=== PATIENT | female | born 1950 | race Caucasian/White ===

== ENCOUNTER 2018-02-10 05:21 | Day surgery (SDC) | payer OTHER ==
[~2018-02-10] VITALS: Ht 167.6 cm; Wt 81.6 kg
[~2018-02-10 05:21] MED LIST: HYDR-1189 PO; MELO15TA13 PO
[2018-02-10] MEDS ORDERED: CEFAZOLIN 2 GM IVPB PREMIX 50 ML IV ONE (06:15)
[2018-02-10] MEDS ORDERED: LEVO25TA7 PO (06:37)
[2018-02-10] MEDS ORDERED: SUCCINYLCHOLINE CHLORIDE 20 MG/ML(QUELICIN) IVP ONE (07:15)
[2018-02-10] MEDS ORDERED: ePHEDrine sulfate 50 MG/ML VIAL IVP ONE (07:15)
[2018-02-10] MEDS ORDERED: fentaNYL CITRATE 250 MCG/5 ML AMP IV ONE (07:15)
[2018-02-10] MEDS ORDERED: LR 1,000 ML IV.SOLN IV ONE (07:15)
[2018-02-10] MEDS ORDERED: PROPOFOL 200MG/ 20ML VIAL (DIPRIVAN) IV ONE (07:15)
[2018-02-10] MEDS ORDERED: fentaNYL CITRATE/PF 100 MCG/2 ML AMP IVP ONE (07:15)
[2018-02-10] MEDS ORDERED: MEPERIDINE HCL/PF 50 MG/ML AMP IVP ONE (07:15)
[2018-02-10] MEDS ORDERED: DEXAMETHASONE SOD PHOSPHATE 4 MG/ML VIAL IVP ONE (07:15)
[2018-02-10] MEDS ORDERED: ONDANSETRON HCL 4 MG/2 ML VIAL IVP ONE ×2 (07:15→10:30)
[2018-02-10] MEDS ORDERED: CEFAZOLIN SOD 2 GM in D5W 50 ML IV ONE (08:00)
[2018-02-10] MEDS ORDERED: MEPERIDINE HCL/PF 25 MG/ML DISP.SYRIN IVP PRN (10:30)
[2018-02-10] MEDS ORDERED: MIDAZOLAM HCL 5 MG/5 ML VIAL IVP PRN (10:30)
[2018-02-10] MEDS ORDERED: NALOXONE HCL 0.4 MG/ML AMP (NARCAN) IVP ONE (10:30)
[2018-02-10] MEDS ORDERED: LABETALOL 100 MG/ 20ML VIAL IVP PRN (10:30)
[2018-02-10] MEDS ORDERED: fentaNYL CITRATE/PF 100 MCG/2 ML AMP IVP PRN (10:30)
[2018-02-10] MEDS ORDERED: HYDROmorphone 1 MG INJ. 1 MG/ML AMPUL IVP PRN (10:30)
[2018-02-10] MEDS ORDERED: HYDROcodone/ACETAMIN 5-325 MG TAB (NORCO/ VICODIN) PO PRN (12:15)
[2018-02-10] MEDS ORDERED: ONDANSETRON 4 MG ODT TAB PO PRN (12:15)
[2018-02-10] MEDS ORDERED: ACETAMINOPHEN 325 MG TABLET PO PRN (12:15)
[2018-02-10] MEDS ORDERED: ONDANSETRON HCL 4 MG/2 ML VIAL IVP PRN ×2 (12:15)
[2018-02-10] MEDS ORDERED: ACETAMINOPHEN 650 MG/20.3 ML UDC PO PRN (12:15)
[2018-02-10] MEDS ORDERED: MORPHINE 2 MG/ML INJ. SYRINGE IVP PRN (12:15)
[2018-02-10] MEDS ORDERED: LABETALOL 100 MG/ 20ML VIAL IVP ONE ×2 (12:35→12:50)
[2018-02-10] MEDS ORDERED: LABETALOL 100 MG/ 20ML VIAL ONE (12:36)
[2018-02-10 13:36] VITALS: BP_SYST 144
[2018-02-10] MEDS: POTASSIUM CHLORIDE 20 MEQ in 0.45% NACL 1,000 ML IV SCH (15:13)
[2018-02-10] MEDS: CALCIUM CARBONATE 500 MG/ TAB.CHEW PO SCH ×2 (18:43→20:54)
[2018-02-10 20:00] VITALS: BP_SYST 124
[2018-02-10] MEDS: NORMAL SALINE 5 ML DISP.SYRIN IVF SCH (20:55)
[2018-02-10 21:20] LABS: ALBUMIN 2.8 g/dL (3.4-4.8)
[2018-02-11] MEDS: POTASSIUM CHLORIDE 20 MEQ in 0.45% NACL 1,000 ML IV SCH ×2 (00:18→09:22)
[2018-02-11 04:00] VITALS: BP_SYST 132
[2018-02-11] MEDS: NORMAL SALINE 5 ML DISP.SYRIN IVF SCH ×2 (06:10→13:01)
[2018-02-11] MEDS ORDERED: LEVOTHYROXINE SODIUM 0.125 MG TABLET PO SCH (07:00)
[2018-02-11 08:00] VITALS: BP_SYST 136
[2018-02-11] MEDS: CALCIUM CARBONATE 500 MG/ TAB.CHEW PO SCH ×2 (08:13→12:59)
[2018-02-11 12:40] VITALS: BP_SYST 134
[2018-02-11] MEDS ORDERED: LEVO125T8 PO (13:04)
[2018-02-11] MEDS ORDERED: CALC500T3 PO (13:05)
[2018-02-11] MEDS ORDERED: HYDR-1189 PO (13:07)
[2018-02-11 13:35] VITALS: BP_SYST 135
== END 2018-02-11 14:00 | disposition home or self-care (01) ==
LOC: SDS 05:21 → SMU 05:22 → SDS 02-11 14:00
PROVIDERS: ATTEND Otolaryngology
DX: C73 Malignant neoplasm of thyroid gland (principal); Z90.49 Acquired absence of other specified parts of digestive tract; Z98.890 Other specified postprocedural states; E03.9 Hypothyroidism, unspecified; M19.90 Unspecified osteoarthritis, unspecified site; Z79.899 Other long term (current) drug therapy; E66.3 Overweight
CPT/HCPCS: 36415; 60240; 82040; 82310; 83970; 87081 ×2; 88307; J0330; J0690; J1100; J2175; J2405; J2704; J3010 ×2; J3480; J3490; J7120; C1782

== ENCOUNTER 2023-09-26 11:57 | Emergency (ER) | payer OTHER ==
[~2023-09-26] VITALS: Ht 162.6 cm; Wt 77.1 kg
[~2023-09-26 11:57] MED LIST changes: +CALC500T3 PO; -HYDR-1189 PO; +HYDR-3919 PO; +LEVO125T8 PO; -MELO15TA13 PO
[2023-09-26 12:04] VITALS: BP_SYST 140; PULSE 91; RESP 18; TEMP 98.3; O2SAT 100
[2023-09-26 12:42] LABS: BASOPHILS % (AUTO) 0.3 % (0.0-2.0); EOSINOPHILS % (AUTO) 0.5 % (0.0-4.0); HEMATOCRIT 43.4 % (36-48); HEMOGLOBIN 14.4 g/dL (12.0-16.0); LYMPHOCYTES # (AUTO) 0.9 K/uL (1.0-5.5); LYMPHOCYTES % (AUTO) 13.9 % (20.5-51.5); MEAN CORPUSCULAR HEMOGLOBIN 31 pg (27-31); MEAN CORPUSCULAR HGB CONC 33 % (32-36); MEAN CORPUSCULAR VOLUME 93 fL (79.0-98.0); MONOCYTES # (AUTO) 0.5 K/uL (0.0-1.0); MONOCYTES % (AUTO) 7.5 % (1.7-9.3); NEUTROPHILS # (AUTO) 4.9 K/uL (1.8-7.7); NEUTROPHILS % (AUTO) 77.8 % (40.0-70.0); PLATELET COUNT (AUTO) 249 K/uL (130-430); RED CELL DISTRIBUTION WIDTH 13.7 % (9.0-15.0); WHITE BLOOD COUNT (AUTO) 6.2 K/uL (4.8-10.8)
[2023-09-26 13:01] LABS: ANION GAP 9 (5-15); CARBON DIOXIDE 27 mmol/L (23-29); CHLORIDE 102 mmol/L (98-107); CREATININE 0.64 mg/dL (0.55-1.30); GLUCOSE 99 mg/dL (74-106); POTASSIUM 3.9 mmol/L (3.5-5.1); SODIUM SERUM 138 mmol/L (136-145); UREA NITROGEN, BLOOD 10 mg/dL (8-21)
[2023-09-26 13:06] LABS: ALANINE AMINOTRANSFERASE 19 U/L (12-78); ALBUMIN 3.2 g/dL (3.4-4.8); ASPARTATE AMINOTRANSFERASE 19 U/L (10-37); TOTAL BILIRUBIN 0.3 mg/dL (0.0-1.0); TOTAL PROTEIN, SERUM 6.2 g/dL (6.4-8.3)
[2023-09-26] MEDS ORDERED: NABU-140 PO (13:46)
[2023-09-26 13:50] LABS: CLARITY/URINE CLEAR (CLEAR); COLOR,URINE YELLOW (YELLOW); PROTEIN URINE NEGATIVE (NEGATIVE)
[2023-09-26 13:51] LABS: BILIRUBIN,URINE NEGATIVE (NEGATIVE); BLOOD, URINE 2+ (NEGATIVE); GLUCOSE,URINE NEGATIVE (NEGATIVE); KETONES,URINE 2+ (NEGATIVE)
[2023-09-26 13:52] LABS: LEUKOCYTE ESTERASE ,URINE 1+ (NEGATIVE); NITRITE, URINE POSITIVE (NEGATIVE); UROBILINOGEN,URINE 0.2 (0.2-1.0)
[2023-09-26 13:58] VITALS: BP_SYST 137; PULSE 78; RESP 16; TEMP 98.1; O2SAT 97
[2023-09-26 14:09] LABS: BACTERIA,URINE MANY /HPF (None Seen)
== END 2023-09-26 13:57 | disposition home or self-care (01) ==
LOC: SED 11:57
DX: R10.31 Right lower quadrant pain (principal); R19.7 Diarrhea, unspecified; Z79.899 Other long term (current) drug therapy
CPT/HCPCS: 36415; 76376; 80053; 81000; 81001; 81015; 85025; 87086; 99284

== ENCOUNTER 2023-09-28 20:49 | Inpatient (IN) | payer OTHER ==
[~2023-09-28] VITALS: Ht 162.6 cm; Wt 75.3 kg
[~2023-09-28 20:49] MED LIST changes: +NABU-140 PO
[2023-09-28 21:00] VITALS: BP_SYST 124; PULSE 120; RESP 16; TEMP 97.9; O2SAT 99
[2023-09-28 21:43] LABS: BASOPHILS % (AUTO) 0.1 % (0.0-2.0); HEMATOCRIT 29.2 % (36-48); HEMOGLOBIN 9.6 g/dL (12.0-16.0); LYMPHOCYTES # (AUTO) 0.7 K/uL (1.0-5.5); LYMPHOCYTES % (AUTO) 3.7 % (20.5-51.5); MEAN CORPUSCULAR HEMOGLOBIN 31 pg (27-31); MEAN CORPUSCULAR HGB CONC 33 % (32-36); MEAN CORPUSCULAR VOLUME 93 fL (79.0-98.0); MONOCYTES % (AUTO) 5.2 % (1.7-9.3); NEUTROPHILS # (AUTO) 17.4 K/uL (1.8-7.7); PLATELET COUNT (AUTO) 357 K/uL (130-430); RED BLOOD CELL COUNT(AUTO) 3.15 MIL/uL (4.2-6.2); RED CELL DISTRIBUTION WIDTH 13.1 % (9.0-15.0); WHITE BLOOD COUNT (AUTO) 19.1 K/uL (4.8-10.8)
[2023-09-28 21:58] LABS: ANION GAP 12 (5-15); CALCIUM 8.7 mg/dL (8.4-11.0); CARBON DIOXIDE 22 mmol/L (23-29); CHLORIDE 104 mmol/L (98-107); CREATININE 0.91 mg/dL (0.55-1.30); GLUCOSE 175 mg/dL (74-106); POTASSIUM 4.6 mmol/L (3.5-5.1); SODIUM SERUM 138 mmol/L (136-145); UREA NITROGEN, BLOOD 58 mg/dL (8-21)
[2023-09-28 22:02] LABS: PROTHROMBIN TIME 10.7 SECS (9.5-12.5)
[2023-09-28 22:05] LABS: ALANINE AMINOTRANSFERASE 21 U/L (12-78); ALBUMIN 2.8 g/dL (3.4-4.8); ASPARTATE AMINOTRANSFERASE 18 U/L (10-37); TOTAL BILIRUBIN 0.4 mg/dL (0.0-1.0); TOTAL PROTEIN, SERUM 5.3 g/dL (6.4-8.3)
[2023-09-28] MEDS ORDERED: PANTOPRAZOLE SODIUM 80 MG in NS 100 ML IV ONE (22:30)
[2023-09-28] MEDS ORDERED: PANTOPRAZOLE SODIUM 40 MG in NS 50 ML IV ONE (22:30)
[2023-09-28] MEDS ORDERED: PIPERACILLIN/TAZO 3.375 GM in NS 50 ML IV ONE (22:45)
[2023-09-28] MEDS ORDERED: NS IV SCH (22:45)
[2023-09-28] MEDS ORDERED: PANTOPRAZOLE SODIUM IV SCH (22:45)
[2023-09-28] MEDS ORDERED: PANTOPRAZOLE SODIUM 40 MG/VIAL (PROTONIX) ONE (23:04)
[2023-09-28] MEDS ORDERED: PIPERACILLIN/TAZOBACTAM 3.375 GM/VIAL (ZOSYN) IV ONE (23:04)
[2023-09-29 00:30] VITALS: BP_SYST 103; PULSE 109; RESP 20; TEMP 97.5
[2023-09-29 00:53] VITALS: BP_SYST 103; PULSE 109; RESP 20; TEMP 97.5; O2SAT 100
[2023-09-29 01:00] VITALS: O2SAT 100
[2023-09-29] MEDS ORDERED: PANTOPRAZOLE SODIUM 40 MG/VIAL (PROTONIX) ONE (01:22)
[2023-09-29] MEDS: D5/0.45 NS 1,000 ML IV SCH ×3 (01:30→20:14)
[2023-09-29] MEDS ORDERED: NACL 0.9% 1,000 ML IV ONE (04:30)
[2023-09-29 05:25] LABS: HEMATOCRIT 26.3 % (36-48); HEMOGLOBIN 8.7 g/dL (12.0-16.0)
[2023-09-29] MEDS: PANTOPRAZOLE SODIUM 40 MG in NS 50 ML IV SCH ×4 (06:43→21:24)
[2023-09-29] MEDS ORDERED: fentaNYL CITRATE/PF 100 MCG/2 ML AMP ONE (09:29)
[2023-09-29] MEDS ORDERED: MIDAZOLAM HCL 5 MG/5 ML VIAL ONE (09:29)
[2023-09-29] MEDS ORDERED: BENZOCAINE 20% 0.5mL UD SPRAY MM ONE (09:31)
[2023-09-29] MEDS ORDERED: DIATR MEGLU/DIATRIZ SOD 30 ML SOLUTION PO ONE (09:36)
[2023-09-29] MEDS ORDERED: LEVO137T2 PO (10:05)
[2023-09-29 15:22] VITALS: BP_SYST 110; PULSE 108; RESP 16; TEMP 97.1; O2SAT 93
[2023-09-29 17:46] LABS: HEMOGLOBIN 7.3 g/dL (12.0-16.0)
[2023-09-29 17:48] LABS: HEMATOCRIT 21.6 % (36-48)
[2023-09-29] MEDS ORDERED: SUCRALFATE 1 GM TABLET PO ONE (18:45)
[2023-09-29 20:00] VITALS: BP_SYST 100; PULSE 110; RESP 18; TEMP 97.6; O2SAT 96
[2023-09-30 00:57] VITALS: BP_SYST 95; PULSE 107; RESP 17; TEMP 98.2; O2SAT 95
[2023-09-30] MEDS: PANTOPRAZOLE SODIUM 40 MG in NS 50 ML IV SCH ×5 (02:59→22:00)
[2023-09-30] MEDS: D5/0.45 NS 1,000 ML IV SCH ×2 (04:45→17:40)
[2023-09-30 05:40] LABS: BASOPHILS % (AUTO) 0.4 % (0.0-2.0); EOSINOPHILS # (AUTO) 0.1 K/uL (0.0-0.4); EOSINOPHILS % (AUTO) 1.4 % (0.0-4.0); HEMATOCRIT 24.6 % (36-48); HEMOGLOBIN 8.1 g/dL (12.0-16.0); LYMPHOCYTES # (AUTO) 1.2 K/uL (1.0-5.5); LYMPHOCYTES % (AUTO) 18.5 % (20.5-51.5); MEAN CORPUSCULAR HEMOGLOBIN 31 pg (27-31); MEAN CORPUSCULAR HGB CONC 33 % (32-36); MEAN CORPUSCULAR VOLUME 93 fL (79.0-98.0); MONOCYTES # (AUTO) 0.5 K/uL (0.0-1.0); MONOCYTES % (AUTO) 8.4 % (1.7-9.3); NEUTROPHILS # (AUTO) 4.6 K/uL (1.8-7.7); NEUTROPHILS % (AUTO) 71.3 % (40.0-70.0); PLATELET COUNT (AUTO) 200 K/uL (130-430); RED BLOOD CELL COUNT(AUTO) 2.66 MIL/uL (4.2-6.2); RED CELL DISTRIBUTION WIDTH 13.5 % (9.0-15.0); WHITE BLOOD COUNT (AUTO) 6.4 K/uL (4.8-10.8)
[2023-09-30 05:52] LABS: ANION GAP 10 (5-15); CALCIUM 7.9 mg/dL (8.4-11.0); CARBON DIOXIDE 24 mmol/L (23-29); CHLORIDE 109 mmol/L (98-107); CREATININE 0.58 mg/dL (0.55-1.30); GLUCOSE 91 mg/dL (74-106); POTASSIUM 3.8 mmol/L (3.5-5.1); SODIUM SERUM 143 mmol/L (136-145); UREA NITROGEN, BLOOD 15 mg/dL (8-21)
[2023-09-30] MEDS: LEVOTHYROXINE SODIUM 0.137 MG TABLET PO SCH (06:18)
[2023-09-30] MEDS: SUCRALFATE 1 GM TABLET PO SCH ×3 (06:18→17:39)
[2023-09-30 07:53] VITALS: BP_SYST 111; PULSE 107; RESP 18; TEMP 97.9; O2SAT 96
[2023-09-30 10:48] VITALS: O2SAT 0
[2023-09-30] MEDS ORDERED: PANTOPRAZOLE SODIUM 40 MG/VIAL (PROTONIX) ONE (13:00)
[2023-09-30] MEDS ORDERED: ACETAMINOPHEN 500 MG TABLET PO PRN (18:15)
[2023-09-30 18:22] LABS: BASOPHILS % (AUTO) 0.7 % (0.0-2.0); EOSINOPHILS # (AUTO) 0.1 K/uL (0.0-0.4); EOSINOPHILS % (AUTO) 1.7 % (0.0-4.0); HEMATOCRIT 25.1 % (36-48); HEMOGLOBIN 8.5 g/dL (12.0-16.0); LYMPHOCYTES # (AUTO) 1.1 K/uL (1.0-5.5); LYMPHOCYTES % (AUTO) 17.7 % (20.5-51.5); MEAN CORPUSCULAR HEMOGLOBIN 31 pg (27-31); MEAN CORPUSCULAR HGB CONC 34 % (32-36); MEAN CORPUSCULAR VOLUME 93 fL (79.0-98.0); MONOCYTES # (AUTO) 0.6 K/uL (0.0-1.0); MONOCYTES % (AUTO) 8.6 % (1.7-9.3); NEUTROPHILS # (AUTO) 4.6 K/uL (1.8-7.7); NEUTROPHILS % (AUTO) 71.3 % (40.0-70.0); PLATELET COUNT (AUTO) 215 K/uL (130-430); RED BLOOD CELL COUNT(AUTO) 2.71 MIL/uL (4.2-6.2); RED CELL DISTRIBUTION WIDTH 13.5 % (9.0-15.0); WHITE BLOOD COUNT (AUTO) 6.4 K/uL (4.8-10.8)
[2023-09-30 19:43] VITALS: BP_SYST 104; PULSE 96; RESP 16; TEMP 98.2; O2SAT 97
[2023-09-30 20:00] VITALS: BP_SYST 106; PULSE 88; RESP 18; TEMP 97.6; O2SAT 97
[2023-10-01 00:51] VITALS: BP_SYST 106; PULSE 87; RESP 16; TEMP 98.6; O2SAT 93
[2023-10-01] MEDS: PANTOPRAZOLE SODIUM 40 MG in NS 50 ML IV SCH (04:13)
[2023-10-01] MEDS: D5/0.45 NS 1,000 ML IV SCH (04:14)
[2023-10-01 05:52] LABS: BASOPHILS % (AUTO) 0.4 % (0.0-2.0); EOSINOPHILS # (AUTO) 0.1 K/uL (0.0-0.4); EOSINOPHILS % (AUTO) 1.6 % (0.0-4.0); HEMATOCRIT 24.7 % (36-48); HEMOGLOBIN 8.3 g/dL (12.0-16.0); LYMPHOCYTES # (AUTO) 0.7 K/uL (1.0-5.5); LYMPHOCYTES % (AUTO) 12.3 % (20.5-51.5); MEAN CORPUSCULAR HEMOGLOBIN 31 pg (27-31); MEAN CORPUSCULAR HGB CONC 34 % (32-36); MEAN CORPUSCULAR VOLUME 93 fL (79.0-98.0); MONOCYTES # (AUTO) 0.5 K/uL (0.0-1.0); MONOCYTES % (AUTO) 8.1 % (1.7-9.3); NEUTROPHILS # (AUTO) 4.7 K/uL (1.8-7.7); NEUTROPHILS % (AUTO) 77.6 % (40.0-70.0); PLATELET COUNT (AUTO) 183 K/uL (130-430); RED BLOOD CELL COUNT(AUTO) 2.67 MIL/uL (4.2-6.2); RED CELL DISTRIBUTION WIDTH 13.6 % (9.0-15.0); WHITE BLOOD COUNT (AUTO) 6.1 K/uL (4.8-10.8)
[2023-10-01] MEDS: SUCRALFATE 1 GM TABLET PO SCH ×2 (06:08→12:16)
[2023-10-01] MEDS: LEVOTHYROXINE SODIUM 0.137 MG TABLET PO SCH (06:09)
[2023-10-01 06:47] LABS: ANION GAP 11 (5-15); CARBON DIOXIDE 24 mmol/L (23-29); CHLORIDE 108 mmol/L (98-107); CREATININE 0.59 mg/dL (0.55-1.30); GLUCOSE 88 mg/dL (74-106); SODIUM SERUM 143 mmol/L (136-145); UREA NITROGEN, BLOOD 5 mg/dL (8-21)
[2023-10-01 06:49] LABS: POTASSIUM 2.7 mmol/L (3.5-5.1)
[2023-10-01] MEDS ORDERED: POTASSIUM CHLORIDE 20 MEQ TAB.PRT.SR PO ONE (07:30)
[2023-10-01 08:00] VITALS: BP_SYST 105; PULSE 95; RESP 18; TEMP 98.2; O2SAT 96
[2023-10-01] MEDS ORDERED: PANTOPRAZOLE SODIUM 40 MG TAB PO SCH (09:00)
[2023-10-01] MEDS ORDERED: SUCR1TAB31 PO (11:05)
[2023-10-01] MEDS ORDERED: PRO40 PO (11:05)
[2023-10-01 14:59] VITALS: BP_SYST 149; PULSE 89; RESP 16; TEMP 98.2; O2SAT 96
== END 2023-10-01 15:22 | disposition home or self-care (01) | DRG 378 ==
LOC: SED 20:49 → SMU 23:22
PROVIDERS: ADMIT Specialist; ATTEND Specialist
PROC: 0DB78ZX Excision of Stomach, Pylorus, Via Natural or Artificial Opening Endoscopic, Diagnostic (ICD-10-PCS; 2023-09-29)
PROC: 0DB98ZX Excision of Duodenum, Via Natural or Artificial Opening Endoscopic, Diagnostic (ICD-10-PCS; principal; 2023-09-29 12:00)
PROC: 30233N1 Transfusion of Nonautologous Red Blood Cells into Peripheral Vein, Percutaneous Approach (ICD-10-PCS; 2023-09-30)
DX: K29.61 Other gastritis with bleeding (principal); D62 Acute posthemorrhagic anemia; R65.10 Systemic inflammatory response syndrome (SIRS) of non-infectious origin without acute organ dysfunction; K27.9 Peptic ulcer, site unspecified, unspecified as acute or chronic, without hemorrhage or perforation; N20.0 Calculus of kidney; Z90.49 Acquired absence of other specified parts of digestive tract; Z79.899 Other long term (current) drug therapy
CPT/HCPCS: 36415; 43239; 71045; 76376; 80048; 80053; 83051; 83605; 83880; 84443; 84484; 85014; 85025; 85610-TC; 86886; 86900; 86901; 86920; 87040; 88305; 88312; 88313; 93005; 99291; C9113; J2250; J2543; J3010; P9021; Q9964; Q9967